=== PATIENT | female | born 1980 | race Hispanic/Latino ===

== ENCOUNTER 2019-08-02 13:29 | Emergency (ER) | payer SELFPAY ==
[2019-08-02 13:41] VITALS: BP 123/82; PULSE 89; RESP 16; TEMP 36.9; O2SAT 99
--- NOTE | 2019-08-02 14:00 | ED.URI ---
HPI - URI/Sore Throat General Chief Complaint: Upper Respiratory Infection Stated Complaint: Head Congestion/Cough Time Seen by Provider: 08/02/19 14:01 Source: patient, family and RN notes reviewed Mode of arrival: ambulatory Limitations: no limitations and language barrier (son as interpretor) History of Present Illness HPI Narrative: 39 year old female accompanied by son who is naval aircrewman helicopter for patient since she speaks [place]ian presents to express care with complaints on one week duration of headache, sore throat, nasal congestion and pressure with discomfort to face, cough which is nonproductive. Patient denies any ear pain, chest pain or pressure of palpitation, no dyspnea at rest or with activity. Patient states that she has had a fever, chills and sweats, denies any nausea or vomiting or any abdominal pain. Patient reports taking Tylenol and Ibuprofen for headache and fever MD elicited complaint: fever, cough, sore throat, rhinorrhea, nasal congestion and sinus pain Onset (ago): week(s) (1) Consistency: constant and progressively worsening Severity: mild Pain scale (0-10): 4 Description of mucous: clear Able to tolerate fluids by mouth: Yes Exacerbating factors: swallowing and exertion Relieving factors: nothing Associated symptoms: fever, chills, headache, rhinorrhea, nasal congestion, sore throat and cough Treatments prior to arrival: ibuprofen Related Data Home Medications Medication Instructions Recorded Confirmed Unknown Htn Medication 08/02/19 metformin PO BID 08/02/19 Allergies Allergy/AdvReac Type Severity Reaction Status Date / Time No Known Allergies Allergy Unverified 01/11/18 13:43 Review of Systems Review of Systems: Narrative: CONSTITUTIONAL: Positive fever, chills, or sweats. EYES: Denies visual changes, redness, or discharge. ENT:Positive rhinorrhea, congestion, sore throat, no otalgia. CARDIOVASCULAR: Denies chest pain, palpitations, or edema. RESPIRATORY:Positive cough no reported dyspnea. GASTROINTESTINAL: Denies abdominal pain, nausea, vomiting, or diarrhea. GENITOURINARY: Denies dysuria or hematuria. SKIN: Denies rash or itching. MUSCULOSKELETAL: Denies back pain, joint pain, or myalgia. NEUROLOGIC: Positive headache,no numbness, or weakness. PSYCHIATRIC: Denies anxiety or depression. All systems reviewed & are unremarkable except as noted in HPI and below FORMERLY [facility] Past Medical History Medical History (Updated 08/03/19 @ 00:00 by Alexis Glaser) Diabetes Hypertension Social History Social History (Updated 08/09/19 @ 11:11 by Roma Anderson NP) Smoking status: Unknown if ever smoked Living arrangements: with family Gender identity (if verbalized by the patient): Female Comments At time of signature, agree with nursing past medical, social history. There is no relevant family history pertinent to the presenting complaint Exam Narrative: Exam Narrative: GENERAL Ill appearing, well-nourished, and in no acute distress. HEAD: Normocephalic, atraumatic. EYES: PERRLA and EOMI. ENT: Nares red and edematous with clear rhinorrhea no epistaxis, sinus pressure and headache frontal. Mucous membranes moist. TM's normal with dull light reflex, throat mild redness with no tonsil swelling or lesion, post nasal drainage present. NECK: Supple.No lymphadenopathy CHEST: Clear to auscultation. No respiratory distress.SAO2 99% on room air HEART: Regular rate and rhythm. No murmur heard. Normal peripheral pulses. ABDOMEN: Soft, nontender, nondistended, normal active bowel sounds. EXTREMITIES: Normal range of motion. No edema. SKIN: Warm, dry, no rash. NEURO: No focal deficits. Alert and oriented x3. Course Vital Signs Vital signs: Vital Signs Temperature 36.9 C 08/02/19 13:41 Pulse Rate 89 08/02/19 13:41 Respiratory Rate 16 08/02/19 13:41 Blood Pressure 123/82 08/02/19 13:41 Pulse Oximetry 99 08/02/19 13:41 Temperature 36.9 C 08/02/19 13:41 Pulse Rate 89 02/2
== END 2019-08-02 14:39 | disposition home or self-care (01) ==
PROVIDERS: Emergency Provider Registered Nurse
DX: J00 Acute nasopharyngitis [common cold] (principal); J01.90 Acute sinusitis, unspecified; E11.9 Type 2 diabetes mellitus without complications; I10 Essential (primary) hypertension
CPT/HCPCS: 87081; 87804; 87880; 99213; G0463

== ENCOUNTER 2021-10-30 14:59 | Emergency (ER) | payer SELFPAY ==
--- NOTE | ~2021-10-30 | XR_ITS ---
EXAMINATION: XR wrist RT min 3V DATE: 10/30/2021 15:19 INDICATION: Right wrist pain. Swelling. TECHNIQUE: 4 views of right wrist were obtained. COMPARISON: None. FINDINGS: Bone alignment is normal. No fracture. There is mild osteoarthritis of triscaphe joint and first carpometacarpal joint characterized by tiny osteophytes. IMPRESSION: 1. Mild polyarticular osteoarthritis. Reviewed, dictated and finalized at location A.
[2021-10-30 15:04] VITALS: BP 153/90; PULSE 69; RESP 20; TEMP 36.1; O2SAT 100
--- NOTE | 2021-10-30 17:02 | ED.UPPEXIN ---
HPI - Extremity Injury (Upper) General Chief Complaint: Extremity Injury, Upper Stated Complaint: R. arm injury. Time Seen by Provider: 10/30/21 16:56 Source: patient Mode of arrival: ambulatory History of Present Illness HPI narrative: 41-year-old female presents today with complaints of right wrist pain after falling today with hands outstretched. Patient denies any numbness or tingling. Patient has full range of motion. No obvious deformity noted. Related Data Home Medications Medication Instructions Recorded Confirmed metformin PO BID 08/02/19 lisinopril 10 mg PO DAILY 10/30/21 10/30/21 Allergies Allergy/AdvReac Type Severity Reaction Status Date / Time No Known Allergies Allergy Unverified 10/30/21 16:34 Review of Systems Review of Systems: CONSTITUTIONAL: Denies fever, chills, or sweats. EYES: Denies visual changes, redness, or discharge. ENT: Denies rhinorrhea, congestion, sore throat, or otalgia. CARDIOVASCULAR: Denies chest pain, palpitations, or edema. RESPIRATORY: Denies cough or dyspnea. GASTROINTESTINAL: Denies abdominal pain, nausea, vomiting, or diarrhea. GENITOURINARY: Denies dysuria or hematuria. SKIN: Denies rash or itching. MUSCULOSKELETAL: Right wrist pain after fall. Denies back pain or myalgia. NEUROLOGIC: Denies headache, numbness, dizziness, or weakness. PSYCHIATRIC: Denies anxiety or depression. PMFSH Past Medical History Medical History Diabetes Hypertension Social History Social History Smoking status: Unknown if ever smoked Gender identity (if verbalized by the patient): Female Exam Narrative: GENERAL: Well-appearing, well-nourished, and in no acute distress. HEAD: Normocephalic, atraumatic. EYES: PERRLA and EOMI. ENT: Nares clear, no rhinorrhea or epistaxis. Mucous membranes moist. Oropharynx without tonsillar hypertrophy exudate or other lesions. Bilateral TMs pearly abdul nonbulging NECK: Supple. No adenopathy or masses. No carotid bruits or JVD CHEST: Clear to auscultation. No respiratory distress. No wheezes rales or rhonchi HEART: Regular rate and rhythm. No murmur heard. Normal peripheral pulses. ABDOMEN: Soft, nontender, nondistended, normal active bowel sounds. EXTREMITIES: Tenderness with palpation to the right wrist. No deformity noted. Patient with full range of motion but pain noted. CMS intact. Normal range of motion. No edema. SKIN: Warm, dry, no rash. NEURO: No focal deficits. Alert and oriented x3. PSYCH: Normal mood and affect. Course Course Emergency Course: Discussed x-ray with patient. Patient wishes to be discharged home. Requested oral medication prior to discharge for pain. Vital Signs Vital signs: Vital Signs Temperature 36.1 C L 10/30/21 15:04 Pulse Rate 69 10/30/21 15:04 Respiratory Rate 20 10/30/21 15:04 Blood Pressure 153/90 H 10/30/21 15:04 Pulse Oximetry 100 10/30/21 15:04 Temperature 36.1 C L 10/30/21 15:04 Pulse Rate 69 10/30/21 15:04 Respiratory Rate 20 10/30/21 15:04 Blood Pressure 153/90 H 10/30/21 15:04 Pulse Oximetry 100 10/30/21 15:04 MDM - Extremity Injury (Upper) MDM Narrative Medical decision making narrative: 47-year-old female with HPI as noted. X-ray shows no fracture. Suspect wrist sprain. Steven wrap provided. Patient instructed follow-up with 1 week if pain continues. Ibuprofen or Tylenol for pain. Differential Diagnosis Differential diagnosis: Likely sprain and strain of wrist and fracture of wrist Imaging Data Radiologist's impression: Impressions Wrist X-Ray 10/30/21 15:21 IMPRESSION: 1. Mild polyarticular osteoarthritis. Discharge Plan Discharge Clinical Impression: Sprain and strain of wrist Patient Disposition: Home, Self-Care Condition: Stable Instructions: Antibiotic Form, Wrist Sprain (ED) Additional Instructions: Steven
[2021-10-30] MEDS: IBUPROFEN 600 MG TABLET PO (17:34)
== END 2021-10-30 17:48 | disposition home or self-care (01) ==
LOC: ANHED 17:28
PROVIDERS: Emergency Provider Nurse Practitioner Family
DX: S63.501A Unspecified sprain of right wrist, initial encounter (principal); S66.911A Strain of unspecified muscle, fascia and tendon at wrist and hand level, right hand, initial encounter; E11.9 Type 2 diabetes mellitus without complications; I10 Essential (primary) hypertension; M19.031 Primary osteoarthritis, right wrist; Z79.84 Long term (current) use of oral hypoglycemic drugs; W19.XXXA Unspecified fall, initial encounter
CPT/HCPCS: 73110; 99283; A9270